=== PATIENT | male | born 1960 | race Caucasian/White ===

== ENCOUNTER 2019-08-19 11:55 | Emergency (ER) | payer MEDICAID ==
[~2019-08-19] VITALS: Ht 172.7 cm; Wt 69.8 kg
[2019-08-19] MEDS ORDERED: aspirin 81mg tab.chew PO ONE (12:50)
[2019-08-19 12:58] LABS: BASOPHILS # (AUTO) 0.1 X10'3 (0-0.2); BASOPHILS % (AUTO) 0.6 % (0-1); EOSINOPHILS % (AUTO) 0.1 % (0-6); HEMATOCRIT 43.5 % (42.0-52.0); HEMOGLOBIN 14.8 g/dl (14.0-17.9); LYMPHOCYTES # (AUTO) 1.3 X10'3 (1.1-4.8); LYMPHOCYTES % (AUTO) 8.4 % (21-51); MEAN CORPUSCULAR HEMOGLOBIN 34.9 PG (27.0-31.0); MEAN CORPUSCULAR HGB CONC 34.1 g/dL (33.0-36.5); MEAN CORPUSCULAR VOLUME 102.5 FL (78-98); MEAN PLATELET VOLUME 8.3 FL (7.4-10.4); MONOCYTES # (AUTO) 1.7 X10'3 (0-0.9); MONOCYTES % (AUTO) 11.3 % (2-12); NEUTROPHILS # (AUTO) 12.1 X10'3 (1.8-7.7); NEUTROPHILS % (AUTO) 79.6 % (42-75); PLATELET COUNT 296 X10'3 (140-440); RED BLOOD COUNT 4.25 X10'6 (4.70-6.10); RED CELL DISTRIBUTION WIDTH 12.9 % (11.5-14.5); WHITE BLOOD COUNT 15.2 X10'3 (4.5-11.0)
[2019-08-19 13:07] LABS: ALANINE AMINOTRANSFERASE 20 U/L (12-78); ALBUMIN 3.2 G/DL (3.4-5.0); ALBUMIN/GLOBULIN RATIO 0.7 (1.1-1.5); ALKALINE PHOSPHATASE 122 IU/L (46-116); ANION GAP 7 (8-16); ASPARTATE AMINO TRANSFERASE 20 U/L (10-37); BILIRUBIN,TOTAL 0.5 MG/DL (0.1-1.0); BLOOD UREA NITROGEN 11 MG/DL (7-18); BUN/CREATININE RATIO 11.2 (5.4-32.0); CHLORIDE 102 MMOL/L (99-107); CREATININE 0.98 MG/DL (0.60-1.10); GLUCOSE 150 MG/DL (70-104); POTASSIUM 4.1 MMOL/L (3.5-5.1); SODIUM 137 MMOL/L (135-145); TOTAL CARBON DIOXIDE 28.5 MMOL/L (24-32); TOTAL PROTEIN 7.6 G/DL (6.4-8.2); eGFR 79 ML/MIN
[2019-08-19 14:44] LABS: D-DIMER 0.34 MG/L FEU (0-0.50)
[2019-08-19] MEDS ORDERED: methylPREDNISolone sod succ 125mg/2ml vial IV ONE (14:50)
[2019-08-19] MEDS ORDERED: ipratropium/albuterol 3ml nebule NEB ONE (14:50)
[2019-08-19] MEDS ORDERED: acetaminophen 325mg tablet PO STA (14:53)
[2019-08-19] MEDS ORDERED: normal saline 1000ML IV soln IV ONE (14:55)
[2019-08-19] MEDS ORDERED: CefTRIAXone 2gm/D5W 50ml 50 ML IV ONE (14:55)
[2019-08-19] MEDS ORDERED: azithromycin/NS 500mg/250ml 250 ML IV ONE (14:55)
[2019-08-19] MEDS ORDERED: PRED20TA PO (16:23)
[2019-08-19] MEDS ORDERED: GUAI120015 PO (16:23)
[2019-08-19] MEDS ORDERED: AMOX-422 PO (16:23)
[2019-08-19] MEDS ORDERED: ALBU6.7H9 INH (16:23)
[2019-08-19 18:11] VITALS: BP 113/75
== END 2019-08-19 18:11 | disposition home or self-care (01) ==
LOC: ER 11:56
DX: J18.9 Pneumonia, unspecified organism (principal); F17.200 Nicotine dependence, unspecified, uncomplicated; Z79.2 Long term (current) use of antibiotics; Z79.899 Other long term (current) drug therapy
CPT/HCPCS: 36415; 71045; 80053; 83605; 83880; 84145; 84484; 85025; 85379; 87040; 93005; 94640; 96365; 96367; 96375; 99285; J0456; J0696; J2930; J7030; 94760